=== PATIENT | male | born 1985 | race Caucasian/White ===

== ENCOUNTER 2018-05-19 14:25 | Emergency (ER) | payer SELFPAY ==
[2018-05-19] MEDS ORDERED: VALACYCLOVIR HCL 500 MG TABLET PO ONE (15:38)
--- NOTE | 2018-05-19 15:56 | ER Document Report ---
HPI - HPI Patient complains to provider of: Tingling to bilateral wrists and hands Time Seen by Provider: 05/19/18 15:32 Onset: Other - 3 days Onset/Duration: Persistent Quality of pain: Burning Pain Level: 4 Context: Patient complains of tingling and burning to bilateral wrists and hands. Patient also complains of stiffening, and rigid range of movement with extending the right third and fourth fingers after flexing them. 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 Patient denies any traumatic injury or fever. Associated Symptoms: Other - Bilateral wrist, hand pain Exacerbated by: Movement Relieved by: Denies Similar symptoms previously: Yes Recently seen / treated by doctor: No - ROS ROS below otherwise negative: Yes Systems Reviewed and Negative: Yes All other systems reviewed and negative - CONSTITUTIONAL Constitutional: DENIES: Fever, Chills - MUSCULOSKELETAL Musculoskeletal: REPORTS: Extremity pain - BUE - DERM Skin Color: Normal Skin Problems: None Past Medical History - General Information source: Patient - Social History Smoking Status: Current Every Day Smoker Chew tobacco use (# tins/day): No Smoking Education Provided: Yes Frequency of alcohol use: Occasional Drug Abuse: None 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 IN LAST 30 DAYS: No - HEENT HEENT: Atraumatic, Normocephalic - NECK Neck: Normal Inspection - RESPIRATORY Respiratory: Breath Sounds Normal, No Respiratory Distress - CARDIOVASCULAR Cardiovascular: Regular Rate, Regular Rhythm Pulses: Normal: Radial - BACK Back: Normal Inspection - MUSCULOSKELETAL/EXTREMETIES Musculoskeletal/Extremeties: IRAM QUINONES Notes: Patient with positive Phalen and Tinel sign bilaterally. Normal skin color and temperature overlying joints of bilateral upper extremities. Patient with catching of the right third and fourth fingers after flexing when he starts to extend them there is a catching that releases with extension of fingers. No contractures noted. - NEURO Level of Consciousness: Awake, Alert, Appropriate Motor/Sensory: No Motor Deficit - DERM Integumentary: Warm, Dry, No Rash Course - Re-evaluation Re-evalutation: 05/19/18 15:53 No concern for fracture dislocation or septic arthritis. Patient presents with likely trigger finger involving the right third and fourth fingers as well as carpal tunnel syndrome to bilateral wrist. Discussed with patient importance of avoiding aggravating activities and need for follow-up with hand surgeon for further management. - Vital Signs Vital signs: Temp Pulse Resp BP Pulse Ox 97.9 F 87 18 145/87 H 100 05/19/18 14:29 05/19/18 14:29 05/19/18 14:29 05/19/18 14:29 05/19/18 14:29 Procedures - Immobilization Left Wrist Pre-Proc Neuro Vasc Exam: Normal Immobilizer type: Cock-up Performed by: PCT Post-Proc Neuro Vasc Exam: Normal Alignment checked and good: Yes Right Wrist Pre-Proc Neuro Vasc Exam: Normal Immobilizer type: Cock-up Performed by: PCT Post-Proc Neuro Vasc Exam: Normal Alignment checked and good: Yes Discharge - Discharge Clinical Impression: Carpal tunnel syndrome on both sides Trigger finger Qualifiers: Trigger finger location: unspecified finger Laterality: right Qualified Code(s): M65.30 - Trigger finger, unspecified finger Condition: Stable Disposition: HOME, SELF-CARE Instructions: Anti-Inflammatory Medication ([facility]), Carpal Tunnel Syndrome ([facility]), Temporary Splint ([facility]) Additional Instructions: Return immediately for any new or worsening symptoms Followup with your primary care provider, call tomorrow to make a followup appointment Follow-up with orthopedic hand specialist for further management of your symptoms. Avoid repetitive activities that aggravate your symptoms. Prescriptions: Hydrocodone/Acetaminophen [Chloe 5-325 mg Tablet] 1 tab PO Q6 PRN #6 tablet PRN Reason: Naproxen [Naprosyn 250 Nmg Tablet] 1 tab PO BID #14 tablet Forms: Smoking Cessation Education, Return to Work Referrals: HENRRY RODRIGUEZ DO [ACTIVE STAFF] - Follow up in 3-5 days
[2018-05-19 16:07] VITALS: BP 135/80
== END 2018-05-19 16:07 | disposition home or self-care (01) ==
LOC: ER 14:25
DX: G56.03 Carpal tunnel syndrome, bilateral upper limbs (principal); M65.30 Trigger finger, unspecified finger; F17.200 Nicotine dependence, unspecified, uncomplicated
CPT/HCPCS: 99283